=== PATIENT | female | born 1985 | race African-American/Black ===

== ENCOUNTER 2019-04-19 21:09 | Emergency (ER) | payer BC, OTHER ==
[~2019-04-19] VITALS: Ht 172.7 cm; Wt 59.0 kg
[~2019-04-19 21:09] MED LIST: COLACE100 MG PO; FEOSOL325 M1 PO; IBUPROFEN 600600 M1 PO; NORCO 5-325 TA1 EACH PO
[2019-04-19 22:25] LABS: URINE BILIRUBIN NEGATIVE (Negative); URINE BLOOD 3+ (Negative); URINE CLARITY CLOUDY; URINE COLOR YELLOW; URINE GLUCOSE-RANDOM* NEGATIVE (Negative); URINE KETONES TRACE (Negative); URINE NITRITE-REFLEX NEGATIVE (Negative); URINE PROTEIN (DIPSTICK) 1+ (Negative); URINE SPECIFIC GRAVITY >= 1.030 (1.005-1.035)
[2019-04-19 22:27] LABS: URINE LEUKOCYTES-REFLEX 1+ (Negative)
[2019-04-19 22:33] LABS: SQUAMOUS 0-3 Few /LPF (0-3); URINE RBC >20 Many /HPF (0-2); URINE WBC-REFLEX 0-5 Rare /HPF (0-5)
[2019-04-19 22:34] LABS: BACTERIA-REFLEX 1-9 Few /HPF (None Seen); CASTS None Seen /LPF (None Seen); CRYSTALS None Seen /LPF (None Seen)
[2019-04-20 00:58] LABS: ABSOLUTE NEUTROPHILS 3.6 thou/uL (1.4-8.2); BASOPHILS 0.5 % (0.0-2.0); HEMATOCRIT 37.9 % (37.0-47.0); HEMOGLOBIN 12.5 gm/dL (12.0-15.0); LYMPHOCYTES 35.1 % (24.0-44.0); MCH 31.7 pg (26.0-34.0); MCHC 33.1 g/dL (28.0-37.0); MONOCYTES 8.5 % (1.0-8.0); PLATELET COUNT 204 thou/uL (150-400); POLYS 53.9 % (36.0-66.0); RBC 3.95 mil/uL (4.20-5.00); WBC 6.7 thou/uL (4.0-11.0)
[2019-04-20 01:07] LABS: CALCIUM 10.2 mg/dL (8.5-10.1); CREATININE 0.7 mg/dL (0.6-1.0); POTASSIUM 3.7 mmol/L (3.5-5.1)
[2019-04-20 01:13] LABS: ALBUMIN 4.4 g/dL (3.4-5.0); TOTAL BILIRUBIN 0.4 mg/dL (<0.1-1.0)
[2019-04-20] MEDS ORDERED: IBUPROFEN 800800 M1 PO (04:26)
[2019-04-20] MEDS ORDERED: NORCO 5-325 TA1 EAC1 PO (04:26)
[2019-04-20 04:43] VITALS: BP 95/48
== END 2019-04-20 04:45 | disposition home or self-care (01) ==
LOC: ER 21:09
PROVIDERS: Emergency Medicine; Physician Assistant
DX: N20.1 Calculus of ureter (principal); F17.210 Nicotine dependence, cigarettes, uncomplicated; F12.10 Cannabis abuse, uncomplicated; R07.81 Pleurodynia; Z87.442 Personal history of urinary calculi